=== PATIENT | female | born 1995 | race Caucasian/White ===

== ENCOUNTER 2023-06-16 20:51 | Emergency (ER) | payer MEDICAID ==
[~2023-06-16] VITALS: Ht 167.6 cm; Wt 70.0 kg
[2023-06-16 23:38] LABS: CLARITY URINE CLEAR (CLEAR); COLOR URINE YELLOW (YELLOW); GLUCOSE URINE NEGATIVE (NEGATIVE); KETONES URINE 3+ (NEGATIVE); LEUKOCYTE ESTERASE URINE NEGATIVE (NEGATIVE); NITRITE URINE NEGATIVE (NEGATIVE); OCCULT BLOOD URINE NEGATIVE (NEGATIVE); PROTEIN URINE NEGATIVE (NEGATIVE); SPECIFIC GRAVITY URINE 1.023 (1.005-1.030)
[2023-06-16 23:44] LABS: BASOPHILS % 0.6 % (0.0-2.0); HEMATOCRIT. 40.2 % (36.0-48.0); HEMOGLOBIN. 13.5 g/dL (12.0-16.0); LYMPHOCYTES % 17.9 % (20.0-50.0); MEAN CORPUSCULAR HEMOGLOBIN 30.9 pg (28.0-32.0); MEAN CORPUSCULAR HGB CONC 33.6 g/dL (31.0-37.0); MEAN PLATELET VOLUME 7.9 fl (7.4-10.4); MONOCYTES % 5.2 % (2.0-8.0); NEUTROPHILS % 76.3 % (40.0-76.0); PLATELET 308 x1000/uL (130-400); RED BLOOD CELL COUNT 4.37 mill/uL (4.2-5.4); RED CELL DISTRIBUTION WIDTH 13.2 % (11.6-14.6); WHITE BLOOD COUNT 8.6 x1000/uL (4.5-11.0)
[2023-06-16 23:47] LABS: *AMPHETAMINES SCREEN URINE NEGATIVE (NEGATIVE); *BARBITURATES SCREEN URINE NEGATIVE (NEGATIVE); *BENZODIAZEPINES SCREEN URINE NEGATIVE (NEGATIVE); *COCAINE SCREEN URINE NEGATIVE (NEGATIVE); CANNABINOID URINE SCREEN NEGATIVE (NEGATIVE); ECSTASY MDMA SCREEN URINE NEGATIVE (NEGATIVE); METHADONE URINE SCREEN Neg (NEGATIVE); OPIATES URINE SCREEN NEGATIVE (NEGATIVE); PHENCYCLIDINE URINE SCREEN NEGATIVE (NEGATIVE)
[2023-06-16 23:49] LABS: ACETAMINOPHEN < 2 ug/mL (10-30); ALANINE AMINOTRANSFERASE 50 IU/L (10-49); ALBUMIN 4.5 g/dL (3.2-4.8); ASPARTATE AMINOTRANSFERASE 35 IU/L (<34); BILIRUBIN TOTAL 0.8 mg/dL (0.1-1.0); CALCIUM 9.3 mg/dL (8.7-10.4); CARBON DIOXIDE 22 mEq/L (21-32); CHLORIDE 106 mEq/L (98-107); CREATININE 0.6 mg/dL (0.6-1.0); GLUCOSE 96 mg/dL (70-105); HCG SCREEN NEGATIVE; POTASSIUM 3.4 mEq/L (3.5-5.1); PROTEIN TOTAL 7.7 g/dL (6.0-8.3); SODIUM 140 mEq/L (136-145); UREA NITROGEN BLOOD 10 mg/dL (9-23)
[2023-06-16 23:58] LABS: ETHANOL BLOOD < 10 mg/dL (<10)
[2023-06-17] MEDS ORDERED: ZIPRASIDONE MESYLATE 20MG/VIAL IM ONE (00:15)
[2023-06-17] MEDS ORDERED: ZIPRASIDONE MESYLATE 20MG/VIAL IM NR (00:15)
[2023-06-17] MEDS ORDERED: POTASSIUM CHLORIDE 20MEQ TABLET SR PO NR (00:45)
[2023-06-17] MEDS: OLANZAPINE 5MG TABLET ODT PO SCH ×2 (11:00→22:00)
[2023-06-17] MEDS ORDERED: OLANZAPINE 10 MG/VIAL IM ONE (20:45)
[2023-06-18] MEDS ORDERED: OLANZAPINE 10 MG/VIAL IM ONE (03:45)
[2023-06-18] MEDS ORDERED: MIDAZOLAM HCL 2 MG/2 ML VIAL IM ONE ×2 (04:30→12:45)
[2023-06-18] MEDS ORDERED: DIPHENHYDRAMINE 50MG/ML VIAL IM PRN ×2 (04:30→15:00)
[2023-06-18] MEDS: OLANZAPINE 5MG TABLET ODT PO SCH ×2 (09:36→17:00)
[2023-06-18] MEDS ORDERED: LORAZEPAM 2MG/ML INJ IM ONE (15:00)
[2023-06-18] MEDS: HALOPERIDOL LACTATE 5MG/ML VIAL IM ONE ×2 (19:24→23:04)
[2023-06-18] MEDS ORDERED: HALOPERIDOL LACTATE 5MG/ML VIAL IM NR (23:00)
[2023-06-19] MEDS: OLANZAPINE 5MG TABLET ODT PO SCH ×2 (09:15→21:00)
[2023-06-19] MEDS ORDERED: OLANZAPINE 10 MG/VIAL IM ONE (21:15)
[2023-06-20 00:09] VITALS: TEMP 98.2
[2023-06-20] MEDS ORDERED: HALOPERIDOL LACTATE 5MG/ML VIAL IM ONE (03:15)
[2023-06-20] MEDS ORDERED: MIDAZOLAM HCL 2 MG/2 ML VIAL IM ONE (03:15)
[2023-06-20 03:27] VITALS: BP 123/76; PULSE 110; RESP 20; O2SAT 100
== END 2023-06-20 13:27 | disposition home or self-care (01) ==
LOC: ER 20:51 → EDSEX 20:51 → ER 06-20 13:27
DX: U07.1 COVID-19 (principal); R46.2 Strange and inexplicable behavior
CPT/HCPCS: 80053; 80305; 81003; 80307; 80329; 80320; 84703; 85025; 36415; 99285; 87426 ×2; 96372 ×4; J3490 ×2; J3486; J1200; J1630 ×2; J2250 ×2; Z7610 ×2; G0480

== ENCOUNTER 2024-12-01 12:18 | Emergency (ER) | payer MEDICAID ==
[~2024-12-01] VITALS: Ht 162.6 cm; Wt 75.0 kg
[2024-12-01] MEDS: LORAZEPAM 1MG TABLET PO ONE (15:46)
[2024-12-01] MEDS: ZIPRASIDONE MESYLATE 20MG/VIAL IM ONE (15:46)
[2024-12-01 17:25] LABS: CLARITY URINE CLOUDY (CLEAR); COLOR URINE YELLOW (YELLOW); PH URINE 6.0 (4.5-8.0); SPECIFIC GRAVITY URINE 1.020 (1.005-1.030)
[2024-12-01 17:26] LABS: GLUCOSE URINE NEGATIVE (NEGATIVE); KETONES URINE 1+ (NEGATIVE); NITRITE URINE NEGATIVE (NEGATIVE); OCCULT BLOOD URINE 1+ (NEGATIVE); PROTEIN URINE TRACE (NEGATIVE); UROBILINOGEN URINE 1.0 E.U./dL (0.2-1.0)
[2024-12-01 17:27] LABS: LEUKOCYTE ESTERASE URINE 3+ (NEGATIVE)
[2024-12-01 17:28] LABS: BACTERIA URINE 3+; SQUAMOUS EPITHELIAL CELL URINE 1+ /lpf (RARE/1+); WBC URINE 25-50 /hpf (0-2)
[2024-12-01 17:30] LABS: *AMPHETAMINES SCREEN URINE NEGATIVE (NEGATIVE); *BARBITURATES SCREEN URINE NEGATIVE (NEGATIVE); *BENZODIAZEPINES SCREEN URINE NEGATIVE (NEGATIVE); *COCAINE SCREEN URINE NEGATIVE (NEGATIVE); CANNABINOID URINE SCREEN NEGATIVE (NEGATIVE); ECSTASY MDMA SCREEN URINE NEGATIVE (NEGATIVE); METHADONE URINE SCREEN NEGATIVE (NEGATIVE); OPIATES URINE SCREEN NEGATIVE (NEGATIVE); PHENCYCLIDINE URINE SCREEN NEGATIVE (NEGATIVE)
[2024-12-01] MEDS ORDERED: DIPHENHYDRAMINE 50MG CAPSULE PO ONE (22:30)
[2024-12-01] MEDS: CEPHALEXIN 250MG CAPSULE PO SCH (23:00)
[2024-12-01] MEDS: DIPHENHYDRAMINE 25MG CAPSULE PO NR (23:23)
[2024-12-01] MEDS: HALOPERIDOL LACTATE 5MG/ML VIAL IM ONE (23:23)
[2024-12-01] MEDS: CEPHALEXIN 250MG CAPSULE PO STA (23:23)
[2024-12-02 01:48] LABS: BASOPHILS % 0.9 % (0.0-2.0); EOSINOPHILS % 3.3 % (0.0-5.0); HEMATOCRIT. 36.7 % (36.0-48.0); HEMOGLOBIN. 12.3 g/dL (12.0-16.0); LYMPHOCYTES % 40.1 % (20.0-50.0); MEAN PLATELET VOLUME 7.8 fl (7.4-10.4); MONOCYTES % 8.4 % (2.0-8.0); NEUTROPHILS % 47.3 % (40.0-76.0); PLATELET 349 x1000/uL (130-400); RED BLOOD CELL COUNT 3.99 mill/uL (4.2-5.4); RED CELL DISTRIBUTION WIDTH 13.7 % (11.6-14.6)
[2024-12-02 01:50] LABS: CREATININE 0.6 mg/dL (0.6-1.0); UREA NITROGEN BLOOD 12 mg/dL (9-23)
[2024-12-02 01:51] LABS: ETHANOL BLOOD < 10 mg/dL (<10)
[2024-12-02 02:26] LABS: HCG SCREEN NEGATIVE
[2024-12-02] MEDS: HALOPERIDOL LACTATE 5MG/ML VIAL IM ONE (06:12)
[2024-12-03] MEDS: LORAZEPAM 2MG/ML UD SYRINGE IM NR (05:23)
[2024-12-03] MEDS: DIPHENHYDRAMINE 50MG/ML VIAL IM ONE (05:23)
[2024-12-03] MEDS: HALOPERIDOL LACTATE 5MG/ML VIAL IM ONE (05:23)
[2024-12-03 06:00] VITALS: O2SAT 97
[2024-12-03] MEDS: OLANZAPINE 5MG TABLET PO SCH (10:30)
[2024-12-03 16:55] VITALS: BP 127/46; PULSE 90; RESP 16; TEMP 36.7; O2SAT 100
== END 2024-12-03 17:13 ==
LOC: ER 12:58
DX: F20.9 Schizophrenia, unspecified (principal); Z59.01 Sheltered homelessness; Z20.822 Contact with and (suspected) exposure to COVID-19; Z79.899 Other long term (current) drug therapy; Z98.890 Other specified postprocedural states
CPT/HCPCS: 80305; 80048; 81003; 80307; 80329; 80320; 84703; 85025; 87086; 87186; 87077; 36415; 96372 ×3; 99285; 87426; Q0163; J1630 ×3; J3486; Z7610 ×3; J1200; J2060; A4606; G0480